=== PATIENT | female | born 1940 | race Caucasian/White ===

== ENCOUNTER 2016-11-11 11:15 | Emergency (ER) | payer MEDICARE ==
--- NOTE | 2016-11-11 13:16 | ER Document Report ---
ED Medical Screen (RME) - General Chief Complaint: Rectal Bleeding Stated Complaint: RECTAL BLEEDING Time Seen by Provider: 11/11/16 13:14 Mode of Arrival: Ambulatory Information source: Patient TRAVEL OUTSIDE OF THE [place] IN LAST 30 DAYS: No - HPI Patient complains to provider of: Bilateral flank pain, dysuria, urinary frequency, bright red blood per rect Notes: 11/11/16 13:15 Patient is a 76-year-old female who is visiting from [place] with her son, has a history of diabetes, high triglycerides and hypertension, who presents to the emergency room complaining of bright red blood per rectum with bowel movements over the past 2-3 days, she has noticed some mucus with bowel movements as well, and blood in the toilet when she urinates, she is unsure whether it is coming from the urinary tract or the rectum, she does report urinary urgency and frequency as well as dysuria - Related Data Allergies/Adverse Reactions: No Known Allergies Allergy (Verified 11/11/16 11:17) Past Medical History Renal/ Medical History: Denies: Hx Peritoneal Dialysis Physical Exam - Vital signs Vitals: Temp Pulse Resp BP Pulse Ox 98.1 F 98 14 162/54 H 95 11/11/16 11:18 11/11/16 11:18 11/11/16 11:18 11/11/16 11:18 11/11/16 11:18 Course - Vital Signs Vital signs: Temp Pulse Resp BP Pulse Ox 98.1 F 98 14 162/54 H 95 11/11/16 11:18 11/11/16 11:18 11/11/16 11:18 11/11/16 11:18 11/11/16 11:18
[2016-11-11 13:43] LABS: HEMATOCRIT 41.7 % (36.0-47.0); HEMOGLOBIN 13.6 g/dL (12.0-15.5); HGB HCT DIFFERENCE -0.9; MEAN CORPUSCULAR HEMOGLOBIN 30.6 pg (27.0-33.4); MEAN CORPUSCULAR HGB CONC 32.7 g/dL (32.0-36.0); MEAN CORPUSCULAR VOLUME 94 fl (80-97); RED BLOOD COUNT 4.46 10^6/uL (3.72-5.28)
[2016-11-11 13:52] LABS: PROTHROMBIN TIME 12.4 SEC (11.4-15.4)
[2016-11-11 13:53] LABS: PARTIAL THROMBOPLASTIN TIME 33.5 SEC (23.5-35.8)
[2016-11-11 13:56] LABS: APPEARANCE,URINE CLOUDY; BILIRUBIN,URINE NEGATIVE (NEGATIVE); GLUCOSE, URINE >=500 mg/dL (NEGATIVE); KETONES,URINE NEGATIVE (NEGATIVE); LEUKOCYTE ESTERASE,URINE LARGE (NEGATIVE); NITRITE,URINE NEGATIVE (NEGATIVE); PROTEIN,URINE NEGATIVE (NEGATIVE); URINE SPECIFIC GRAVITY 1.007; UROBILINOGEN,URINE NEGATIVE mg/dL (<2.0)
[2016-11-11 14:05] LABS: ALANINE AMINOTRANSFERASE 24 U/L (9-52); ALBUMIN 4.1 g/dL (3.5-5.0); ALKALINE PHOSPHATASE 110 U/L (38-126); ANION GAP 14 (5-19); ASPARTATE AMINO TRANSFERASE 21 U/L (14-36); BILIRUBIN,DIRECT 0.4 mg/dL (0.0-0.4); BILIRUBIN,TOTAL 0.6 mg/dL (0.2-1.3); BLOOD UREA NITROGEN 17 mg/dL (7-20); CALCIUM 9.6 mg/dL (8.4-10.2); CARBON DIOXIDE 27 mmol/L (22-30); CHLORIDE 95 mmol/L (98-107); CREATININE RESULT 0.78 mg/dL (0.52-1.25); GLUCOSE 182 mg/dL (75-110); LIPASE 70.1 U/L (23-300); POTASSIUM 4.8 mmol/L (3.6-5.0); SODIUM 135.6 mmol/L (137-145)
[2016-11-11 14:12] LABS: BASOPHILS % (MANUAL) 1 % (0-2); EOSINOPHILS % (MANUAL) 2 % (0-6); LYMPHOCYTES % (MANUAL) 30 % (13-45); TOTAL CELLS COUNTED 100
[2016-11-11 14:15] LABS: ANISOCYTOSIS SLIGHT; TOXIC GRANULATION 1+
--- NOTE | 2016-11-11 14:41 | ER Document Report ---
ED GI Bleed / Rectal Pain - General Chief Complaint: Rectal Bleeding Stated Complaint: RECTAL BLEEDING Time Seen by Provider: 11/11/16 13:14 Mode of Arrival: Ambulatory Information source: Patient TRAVEL OUTSIDE OF THE [place] IN LAST 30 DAYS: No - HPI Patient complains to provider of: Bright red bld from rect. Onset: Yesterday Timing/Duration: Persistent Quality of pain: Achy Severity of symptoms: Moderate Pain Level: 3 Emesis description: Bright red blood Rectal bleeding: Bleeding w/o stool Notes: Patient is a 76-year-old female who presents to the emergency room complaining of bright red blood per rectum that has been going on for the past 2 days, she denies any rectal pain, no rectal trauma, she has noticed low back pain as well as urinary frequency and urgency as well, she is visiting from [place], has a history of hemorrhoids in the past - Related Data Allergies/Adverse Reactions: No Known Allergies Allergy (Verified 11/11/16 11:17) Past Medical History - General Information source: Patient - Social History Smoking Status: Never Smoker Family History: Reviewed & Not Pertinent Patient has suicidal ideation: No Patient has homicidal ideation: No Renal/ Medical History: Denies: Hx Peritoneal Dialysis Review of Systems - Review of Systems Constitutional: No symptoms reported EENT: No symptoms reported Cardiovascular: No symptoms reported Respiratory: No symptoms reported Gastrointestinal: See HPI Genitourinary: See HPI Female Genitourinary: No symptoms reported Musculoskeletal: No symptoms reported Skin: No symptoms reported Hematologic/Lymphatic: No symptoms reported Neurological/Psychological: No symptoms reported -: Yes All other systems reviewed and negative Physical Exam - Vital signs Vitals: Temp Pulse Resp BP Pulse Ox 98.1 F 98 14 162/54 H 95 11/11/16 11:18 11/11/16 11:18 11/11/16 11:18 11/11/16 11:18 11/11/16 11:18 Interpretation: Normal - General General appearance: Appears well, Alert - HEENT Head: Normocephalic, Atraumatic Eyes: Normal Pupils: PERRL - Respiratory Respiratory status: No respiratory distress Chest status: Nontender Breath sounds: Normal Chest palpation: Normal - Cardiovascular Rhythm: Regular Heart sounds: Normal auscultation Murmur: No - Abdominal Inspection: Normal Distension: No distension Bowel sounds: Normal Tenderness: Tender - Suprapubic Organomegaly: No organomegaly - Rectal Tenderness: Yes - mild Hemorrhoids: Internal, Other - bright red blood per rectum - Back Back: Normal, Nontender - Extremities General upper extremity: Normal inspection, Nontender, Normal color, Normal ROM , Normal temperature General lower extremity: Normal inspection, Nontender, Normal color, Normal ROM , Normal temperature, Normal weight bearing. No: Aimee's sign - Neurological Neuro grossly intact: Yes Cognition: Normal Orientation: AAOx4 [place] Coma Scale Eye Opening: Spontaneous Crescencio Coma Scale Verbal: Oriented Crescencio Coma Scale Motor: Obeys Commands Crescencio Coma Scale Total: 15 Speech: Normal Motor strength normal: LUE, RUE, LLE, RLE Sensory: Normal - Psychological Associated symptoms: Normal affect, Normal mood - Skin Skin Temperature: Warm Skin Moisture: Dry Skin Color: Normal Course - Re-evaluation Re-evalutation: 11/11/16 14:38 Patient's physical exam findings consistent with bleeding hemorrhoids, lab findings were unremarkable and discussed with patient at bedside, she is also noted to have a urinary tract infection will be started on antibiotics for this , advised to follow-up with her primary care provider or return if symptoms worsen, patient acknowledges understanding and agreement with this plan - Vital Signs Vital signs: Temp Pulse Resp BP Pulse Ox 98.1 F 98 14 162/54 H 95 11/11/16 11:18 11/11/16 11:18 11/11/16 11:18 11/11/16 11:18 11/11/16 11:18 - Laboratory Result Diagrams: 11/11/16 13:20 11/11/16 13:20 Laboratory results interpreted by me: 11/11/16 11/11/16 13:20 13:20 Sodium 135.6 L Chloride 95 L Glucose 182 H Urine Glucose (UA) >=500 H Ur Leukocyte Esterase LARGE H Discharge - Discharge Clinical Impression: Hemorrhoids Qualifiers: Hemorrhoid type: unspecified Qualified Code(s): K64.9 - Unspecified hemorrhoids Urinary tract infection Qualifiers: Urinary tract infection type: site unspecified Hematuria presence: with hematuria Qualified Code(s): N39.0 - Urinary tract infection, site not specified ; R31.9 - Hematuria, unspecified Condition: Stable Disposition: HOME, SELF-CARE Instructions: Urinary Tract Infection ([facility]), Cephalexin ([facility]), Hemorrhoids ([facility] ), HC Hemorrhoid Cream ([facility]) Additional Instructions: Follow up with your primary care provider in one to 2 days. Return to the emergency room immediately if symptoms worsen or any additional concerns. Prescriptions: Cephalexin Monohydrate [Keflex 500 mg Capsule] 500 mg PO BID #20 capsule Hc Acetate/Pramoxine HCl [Analpram Hc 1% Cream Singles] 4 gm RC TID #1 tu
[2016-11-11 15:00] VITALS: BP 160/57
== END 2016-11-11 15:00 | disposition home or self-care (01) ==
LOC: ER 11:15
DX: N39.0 Urinary tract infection, site not specified (principal); R31.9 Hematuria, unspecified; K64.9 Unspecified hemorrhoids; K62.5 Hemorrhage of anus and rectum; M54.5 Low back pain; R35.0 Frequency of micturition; R39.15 Urgency of urination
CPT/HCPCS: 36415; 80053; 81001; 83690; 85025; 85610; 85730; 87086; 87088; 87186; 99283